=== PATIENT | female | born 1985 ===

== ENCOUNTER 2017-11-24 10:40 | Inpatient (IN) | payer MEDICAID ==
[~2017-11-24] VITALS: Ht 162.6 cm; Wt 61.2 kg
[2017-11-24] MEDS: DOCUSATE CALCIUM 240 MG CAP PO SCH (10:30)
[2017-11-24] MEDS ORDERED: LACT. RINGERS/OXYTOCIN 20UNITS 1,000 ML IV SCH (11:50)
[2017-11-24] MEDS: LACTATED RINGER'S 1,000 ML IV SCH ×2 (11:52→19:50)
[2017-11-24] MEDS ORDERED: WITCH HAZEL-GLYCERIN PAD TOP PRN (12:00)
[2017-11-24] MEDS ORDERED: PENICILLIN G POT 5MIL/D5 50ML 50 ML IV ONE ×2 (12:00→12:04)
[2017-11-24] MEDS ORDERED: PHISODERM TOP SOLN 240ML BTL TOP PRN (12:00)
[2017-11-24] MEDS ORDERED: DERMOPLAST 60ML BOTTLE TOP PRN (12:00)
[2017-11-24] MEDS ORDERED: LIDOCAINE 2% (LOCAL ANESTH.) PF 5ml SDV ID ONE (12:00)
[2017-11-24] MEDS ORDERED: NALBUPHINE HCL 10 MG/1ml INJECTION IV PRN (12:00)
[2017-11-24 12:40] LABS: Basophils # (auto) 0.1 uL; Basophils % (auto) 0.8 % (0.0-2.0); Eosinophils # (auto) 0.1 uL; Eosinophils % (auto) 0.5 % (0.0-7.0); Hematocrit 35.6 % (36.0-46.0); Hemoglobin 11.8 g/dL (12.2-16.2); Lymphocytes # (auto) 1.8 uL; Lymphocytes % (auto) 15.2 % (10.0-50.0); Mean Corpuscular Hemoglobin 28.7 pg (28.0-32.0); Mean Corpuscular Hgb Conc. 33.3 g/dL (32.0-36.0); Mean Corpuscular Volume 86.3 fL (80.0-100.0); Monocytes # (auto) 0.7 uL; Monocytes % (auto) 5.5 % (0.0-12.0); Neutrophils # (auto) 9.5 uL; Platelet Count (auto) 220 10^3/uL (140-450); Red Blood Cells 4.12 10^6/uL (4.0-5.20); Red Cell Distribution Width 14.6 % (11.8-14.3); Urine Bacteria FEW /hpf (None Seen); Urine Blood TRACE /uL (Negative); Urine Specific Gravity 1.008 (1.001-1.035); Urine WBC 2 /hpf (0 - 5); White Blood Cell 12.2 10^3/uL (4.4-10.8)
[2017-11-24 12:50] LABS: INR 0.88 (0.9-1.15); Partial Thromboplastin Time 25.7 sec (22.64-33.71); Prothrombin Time 9.6 sec (9.37-12.3)
[2017-11-24 13:33] LABS: Albumin 2.7 g/dL (3.4-5.0); BUN/Creatinine Ratio 8.5; Bilirubin, Total 0.6 mg/dL (0.2-1.0); Calcium 8.1 mg/dL (8.5-10.1); Potassium 3.4 mmol/L (3.5-5.1); Total Protein 7.3 g/dL (6.4-8.2)
[2017-11-24] MEDS ORDERED: PREN-96 PO (14:05)
[2017-11-24] MEDS: PENICILLIN G POTASSIUM 2,500,000 UNITS in D5W 5% 50 ML IV SCH ×2 (15:45→20:00)
[2017-11-24] MEDS ORDERED: LACT. RINGERS/OXYTOCIN 20UNITS 500 ML IV ONE (17:33)
[2017-11-24] MEDS ORDERED: IBUPROFEN 600 MG TAB PO PRN (17:45)
[2017-11-24 18:25] LABS: Alcohol, Urine < 3.0 mg/dL (0-5); Amphetamine Screen, Urine NEGATIVE (NEGATIVE); Barbiturate Scree,Urine NEGATIVE (NEGATIVE); Benzodiazephine Screen, Urine NEGATIVE (NEGATIVE); Cannabinoid Screen, Urine NEGATIVE (NEGATIVE); Cocaine Screen, Urine NEGATIVE (NEGATIVE); Opiate Scree,Urine NEGATIVE (NEGATIVE); Phencyclidine Screen, Urine NEGATIVE (NEGATIVE)
[2017-11-24 19:06] VITALS: BP 112/61
[2017-11-24 23:30] VITALS: BP 111/64
[2017-11-25] MEDS: PENICILLIN G POTASSIUM 2,500,000 UNITS in D5W 5% 50 ML IV SCH ×2
[2017-11-25 03:15] VITALS: BP 114/65
[2017-11-25 07:00] VITALS: BP 94/50
[2017-11-25] MEDS: DOCUSATE CALCIUM 240 MG CAP PO SCH (10:30)
[2017-11-25 11:00] VITALS: BP 108/67
[2017-11-25 15:00] VITALS: BP 99/59
[2017-11-25] MEDS ORDERED: TETANUS-DIPTH-ACEL PERTUSSIS 0.5ML SYRG IM ONE (16:30)
== END 2017-11-25 18:50 | disposition home or self-care (01) | DRG 560 ==
LOC: LDRP 10:40 → OBSVTOIN 11:40 → LDRP 11:53
PROVIDERS: ADMIT Specialist; ATTEND Specialist
PROC: 10E0XZZ Delivery of Products of Conception, External Approach (ICD-10-PCS; principal; 2017-11-24)
PROC: 3E0234Z Introduction of Serum, Toxoid and Vaccine into Muscle, Percutaneous Approach (ICD-10-PCS; 2017-11-25)
DX: O99.824 Streptococcus B carrier state complicating childbirth (principal); Z23 Encounter for immunization; Z3A.38 38 weeks gestation of pregnancy; Z37.0 Single live birth
CPT/HCPCS: 36415; 59025; 59409; 80053; 80307; 81001; 81002; 85025; 85610; 85730; 86850; 86900; 86901; 90472; 90715; 96365; 96366; G0378; J2540; J2590; J7060